=== PATIENT | female | born 1960 | race Caucasian/White ===

== ENCOUNTER → 2021-03-06 | Outpatient (CLI) | payer BC ==
[~2021-03-06] MED LIST: FLEXERIL 10 MG10 MG PO; IBUPROFEN400 MG PO
[2021-03-06 14:26] LABS: HEMOGLOBIN 13.1 gm/dl (12.3-15.3); RED BLOOD COUNT 4.75 M/UL (4.00-5.10); WHITE BLOOD COUNT 6.7 K/UL (4.5-11.0)
[2021-03-06 15:29] LABS: BUN/CREATININE RATIO 31 (0-10)
[2021-03-07 07:10] LABS: RHEUMATOID ARTHRITIS FACTOR <10.0 IU/mL (<14.0)
[2021-03-08 21:11] LABS: QUANTIFERON MITOGEN VALUE >10.00 IU/mL (.); QUANTIFERON NIL VALUE 0.06 IU/mL (.); QUANTIFERON TB1 AG VALUE 0.02 IU/mL (.); QUANTIFERON TB2 AG VALUE 0.05 IU/mL (.); QUANTIFERON-TB GOLD PLUS Negative (Negative)
== END ==
LOC: LAB 13:33
PROVIDERS: Internal Medicine
DX: K74.60 Unspecified cirrhosis of liver (principal); M25.50 Pain in unspecified joint; R55 Syncope and collapse; D89.89 Other specified disorders involving the immune mechanism, not elsewhere classified; R74.8 Abnormal levels of other serum enzymes; K76.0 Fatty (change of) liver, not elsewhere classified; M06.4 Inflammatory polyarthropathy; R93.6 Abnormal findings on diagnostic imaging of limbs; Z79.899 Other long term (current) drug therapy
CPT/HCPCS: 36415; 73130; 80053; 83516; 83520; 85025; 86200; 86431

== ENCOUNTER 2021-09-23 23:45 | Emergency (ER) | payer BC | END 2021-09-24 01:35 | disposition home or self-care (01) | LOC: ER1 23:45 | DX: S90.121A Contusion of right lesser toe(s) without damage to nail, initial encounter (principal); I10 Essential (primary) hypertension; J45.909 Unspecified asthma, uncomplicated; Z90.49 Acquired absence of other specified parts of digestive tract; Z90.89 Acquired absence of other organs; Y29.XXXA Contact with blunt object, undetermined intent, initial encounter; Y92.009 Unspecified place in unspecified non-institutional (private) residence as the place of occurrence of the external cause | CPT/HCPCS: 73630; 99283 ==